=== PATIENT | female | born 1965 | race Caucasian/White ===

== ENCOUNTER 2023-12-08 12:03 | Emergency (ER) | payer BC, SELFPAY ==
[2023-12-08 12:07] VITALS: BP 139/83
[2023-12-08 12:32] LABS: % Basophils 0.5 % (0-2); % Eosinophils 0.5 % (0-6); % Immature Granulocytes 0.3 % (0-0.5); % Lymphocytes 26.9 % (20.5-51.1); % Neutrophils 64.8 % (42.2-75.2); Absolute Lymphocytes 1.7 10^3/uL (1.2-3.4); Absolute Monocytes 0.4 10^3/uL (0.1-0.6); Absolute Neutrophils 4.1 10^3/uL (1.4-6.5); Hematocrit 37.8 % (37.0-47.0); Hemoglobin 12.9 g/dL (12.0-16.0); Mean Corp Hgb Conc. 34.1 g/dL (33.0-37.0); Mean Corpuscular Hgb 34.2 pg (27.0-31.0); Mean Corpuscular Volume 100.3 fL (81.0-99.0); Mean Platelet Volume 8.3 fL (7.4-10.4); Nucleated Red Blood Cells % 0 %; Platelet Count 341 10^3/uL (130-400); Red Blood Cell Count 3.77 10^6/uL (4.20-5.40); Red Cell Dist. Width 12.8 % (11.5-14.5); White Blood Cell Count 6.3 10^3/uL (4.8-10.8)
[2023-12-08 12:50] LABS: ALT (SGPT) 23 U/L (0-35); AST (SGOT) 42 U/L (14-36); Albumin 4.4 g/dl (3.5-5.0); Alkaline Phosphatase 69 U/L (38-126); Blood Urea Nitrogen 11 mg/dl (7-17); Calcium 9.3 mg/dl (8.4-10.2); Carbon Dioxide 27 mmol/L (22-30); Chloride 101 mmol/L (98-107); Glucose 133 mg/dl (70-99); Potassium 4.5 mmol/L (3.5-5.1); Sodium 133 mmol/L (135-145); Total Bilirubin 0.7 mg/dl (0.2-1.3); Total Protein 6.8 g/dl (6.3-8.2); eGFR > 60.00
[2023-12-08 13:08] LABS: Troponin I < 0.012 ng/ml
--- NOTE | 2023-12-08 13:13 | ED.GENMED ---
History of Present Illness
General
Chief Complaint: Chest Pain
Time Seen by Provider: 12/08/23 13:00
History of Present Illness
History of Present Illness:
58-year-old female with hx of breast CA s/p total double mastectomy and ROSARIO presents to the emergency department for evaluation of central chest tightness that began over the past 2 to 3 days. She notes that she has had a dry cough for the past
week to 10 days that she felt was related to environmental exposures as she works around [employer] and [employer]. The cough is gotten transiently better however the chest tightness developed over the past 2 to 3 days. She describes it as tightness
without pain, no pleuritic worsening, no exertional worsening, no positional worsening. Denies any fevers, chills, night sweats, purulent sputum, back pain, shortness of breath, or extremity paresthesias. She does take an estrogen supplement
Review of Systems
Review of Systems
Allergies reviewed?: Yes
All Other Systems: ROS reviewed and negative except as documented in HPI and ROS
Phy Exam
Physical Exam
Physical Exam:
GEN: Well appearing, NAD, WDWN
HEENT: Oral mucosa moist, no scleral icterus
Cardiac: Regular rate and rhythm, no murmurs
Lung: No respiratory distress, no tachypnea, lungs clear to auscultation bilaterally
MSK: No gross deformity or injuries
Skin: Good color, no pallor or jaundice, no rashes
Neuro: AO x3, moves all extremities freely
Psych: Calm, cooperative
Scores
Heart Score for Chest Pain Patients
STEMI patient?: No
History: Slightly or Non-Suspicious
ECG: Normal
Age: >45 - <65 years
Risk Factors: No Risk Factors
Troponin: </= Normal Limit
Heart Score for Chest Pain Patients: 1
Heart Score Risk: 2.5% MACE over next 6 weeks
Course
Orders/Labs/Results
Orders:
Orders
12/08/23 12:07
Electrocardiogram (*1) Urgent
Reason for Study: Chest Pain
Cardiac Monitoring- Treatment ONCE
EKG- Treatment ONCE
IV Insert/Care/Rem.- Treatment PRN
O2 Therapy [RESP] Urgent
Titrate/Wean O2 to maintain O2 sat greater than (%): 90
Special Instructions: Maintain sats >/=90%
Pulse Ox/spot Check [RESP] Urgent
Quantity: 1
Special Instructions: ON ROOM AIR
12/08/23 12:19
Complete Blood Count/With Diff Urgent
Comprehensive Metabolic Panel Urgent
Troponin I Urgent
12/08/23 13:13
CR Chest - 2 Views Urgent
Comment:
Reason For Exam: chest tightness/cough
12/08/23 14:04
D-Dimer Urgent
Abnormal Lab Results
12/08/23
12:19
RBC 3.77 L 10^6/uL
(4.20-5.40)
MCV 100.3 H fL
(81.0-99.0)
MCH 34.2 H pg
(27.0-31.0)
Sodium 133 L mmol/L
(135-145)
Glucose 133 H mg/dl
(70-99)
AST 42 H U/L
(14-36)
12/08/23 12:19
12/08/23 12:19
Vital Signs
Initial and Last Documented VS:
Initial Vital Signs
Temp Pulse Resp BP Pulse Ox
98.6 F 89 18 139/83 100
12/08/23 12:07 12/08/23 12:07 12/08/23 12:07 12/08/23 12:07 12/08/23 12:07
Last Documented Vital Signs
Temp Pulse Resp BP Pulse Ox
98.6 F 81 14 126/89 96
12/08/23 12:07 12/08/23 14:45 12/08/23 14:45 12/08/23 14:00 12/08/23 14:45
MDM/Problems Addressed
MDM/Problems Addressed:
Patient's workup is reassuring, no concerns for ACS or PE based on labs, EKG is urine and chest x-ray shows no infiltrates. Discussed use of NSAIDs for supportive care
Comment
Comment:
EKG independently interpreted by me shows normal sinus rhythm at a rate of [address] changes concerning for ischemia, QTc of 434
*Critical Care Note
Total Time (30-74mins, 75-104mins- exclusive of procedures): Not Applicable
ED Attending Note
-
Portions of this chart may have been created with voice recognition software.� Occasional wrong word or��sound alike� substitutions may have occurred due to the inherent limitations of voice recognition software.
Discharge Plan
Departure
Patient Disposition: Home (Routine Discharge)
Date of Disposition: 12/08/23
Time of Disposition: 14:54
Patient with high blood pressure during this ER visit?: No
Discharge Problem:
Atypical chest pain
Instructions: Chest Pain That Is Not Caused by the Heart (DC)
Referrals:
Wily Bueno, DO [Family Provider] -
Activity Restrictions/Additional Instructions:
Take 400-600mg ibuprofen every 6-8 hours as needed for pain
Interventions
Interventions:
*Risk Screen - Suicide Last Done: 12/08/23 12:14
*General Assessment Last Done: 12/08/23 12:14
*Neglect/Abuse Screening Last Done: 12/08/23 12:14
*ED COVID-19 Vaccine History Last Done: 12/08/23 12:14
*Nursing Disposition Last Done: 12/08/23 15:00
ED- Cardiac Assessment Last Done: 12/08/23 13:22
Discharge Date and Time
Discharge Date/Time: 12/08/23 15:01
Print Language: ARMENIAN
[2023-12-08 13:17] VITALS: BMI 19.8
[2023-12-08 13:20] VITALS: BP 128/84
[2023-12-08 14:00] VITALS: BP 126/89
[2023-12-08 14:40] LABS: D-Dimer 0.31 ug/mlFEU (0.00-0.50)
== END 2023-12-08 15:01 | disposition home or self-care (01) ==
LOC: EMR 12:03
PROVIDERS: Emergency Medicine; Physician Assistant; EMERGENCY PHYSICIAN Student in an Organized Health Care Education/Training Program; FAMILY PHYSICIAN Internal Medicine
DX: R07.89 Other chest pain (principal); Z85.3 Personal history of malignant neoplasm of breast; Z90.13 Acquired absence of bilateral breasts and nipples
CPT/HCPCS: 99283; 71046; 80053; 84484; 85025; 85379; 93005